=== PATIENT | female | born 1945 | race African-American/Black ===

== ENCOUNTER 2017-08-20 09:07 | Emergency (ER) | payer MEDICARE ==
--- NOTE | 2017-08-20 10:29 | ER Document Report ---
HPI - HPI Patient complains to provider of: ulcer check Onset: Other Onset/Duration: Persistent Quality of pain: No pain Context: Patient presents to the emergency department via EMS with her daughter for complaints of sacral decubitus recheck. Daughter gives history that earlier this year the patient was in [place] in the hospital for possible stroke was discharged and placed in a rehab center. She reports patient has been in the rehab center for the past 2 weeks and she has been falling a lot so daughter checked her out one day early. Daughter brought her home to her house to take care of her. She reports home health has been coming out to take care of her mother they have been treating the decubitus ulcer on her sacral area. Daughter reports the sacral area looks better than it did. She reports she worries about mom not eating enough. She also is worried because she needs an ambulance to transport her and mom does have does not have Medicaid. She reports mom has an appointment with her primary care provider this Tuesday. Daughter reports that she is basically here to have us evaluate the decubitus to make sure it does not need further treatment. Daughter again stated that it looks better than it did. Associated Symptoms: None Exacerbated by: Denies Relieved by: Denies Similar symptoms previously: Yes Recently seen / treated by doctor: Yes Past Medical History - General Information source: Relative - daughter - Social History Smoking Status: Unknown if Ever Smoked Cigarette use (# per day): No Frequency of alcohol use: None Drug Abuse: None Lives with: Family Family History: Reviewed & Not Pertinent Patient has suicidal ideation: No Patient has homicidal ideation: No - Past Medical History Cardiac Medical History: Reports: Hx Coronary Artery Disease, Hx Hypercholesterolemia, Hx Hypertension Neurological Medical History: Reports: Hx Cerebrovascular Accident Psychiatric Medical History: Reports: Hx Depression Surgical Hx: Negative Past Surgical History: Reports: Hx Cardiac Surgery Vertical Provider Document - CONSTITUTIONAL Agree With Documented VS: Yes General Appearance: WD/WN, No Apparent Distress - INFECTION CONTROL TRAVEL OUTSIDE OF THE [place] IN LAST 30 DAYS: No - HEENT HEENT: Atraumatic, Normocephalic - NECK Neck: Supple - RESPIRATORY Respiratory: Breath Sounds Normal, No Respiratory Distress O2 Sat by Pulse Oximetry: 95 - CARDIOVASCULAR Cardiovascular: Regular Rate, Regular Rhythm - GI/ABDOMEN Gastrointestinal: Abdomen Soft, Abdomen Non-Tender - MUSCULOSKELETAL/EXTREMETIES Musculoskeletal/Extremeties: MAEW, FROM - NEURO Level of Consciousness: Awake, Alert, Non-Verbal - DERM Integumentary: Warm, Dry Adult Front & Back Diagram: 1 - stage 2 decubitus ulcer, no warmth, no swelling, no discharge Course - Re-evaluation Re-evalutation: 08/20/17 10:37 pt daughter is here to have the decubitus ulcer rechecked. Pt has home health care, an [employer] has checked the ulcer this past week, they said it was looking better but daughter is worried. Daughter denies f/n/v/d. She reports she is worried about mom and that is why she is here. [facility] protective services social worker contacted to help daughter with obtaining medicaid and any other community services to help her care for mom. 08/20/17 [place] protective services social worker in with patient. Daughter verbalized understanding to all information [facility] transport here for patient - Vital Signs Vital signs: Temp Pulse Resp BP Pulse Ox 98.1 F 53 L 18 166/59 H 95 08/20/17 09:13 08/20/17 09:13 08/20/17 09:13 08/20/17 09:13 08/20/17 09:13 Discharge - Discharge Clinical Impression: Decubitus skin ulcer Qualifiers: Pressure ulcer location: sacral region Pressure ulcer stage: stage 2 Qualified Code(s): L89.152 - Pressure ulcer of sacral region, stage 2 Condition: Stable Disposition: HOME, SELF-CARE Instructions: Decubitus Ulcer ([facility]) Additional Instructions: *You have been treated for check of decubitus ulcer *Monitor the site for signs of infection such as increasing pain, redness, swelling, warmth *Keep the area clean, change positions ofter *Follow up with her primary care provider Tuesday as scheduled *Return to ED for signs of increasing infection, worsening condition, changes, needs, concerns Forms: Elevated Blood Pressure
[2017-08-20 11:24] VITALS: BP 157/62
== END 2017-08-20 11:32 | disposition home or self-care (01) ==
LOC: EDBD 09:07 → ER 09:07
DX: L89.152 Pressure ulcer of sacral region, stage 2 (principal); I25.10 Atherosclerotic heart disease of native coronary artery without angina pectoris; I10 Essential (primary) hypertension
CPT/HCPCS: 99284

== ENCOUNTER 2017-09-02 17:00 | Emergency (ER) | payer MEDICARE ==
--- NOTE | 2017-09-02 17:24 | ER Document Report ---
ED General - General Stated Complaint: UNRESPONSIVE Time Seen by Provider: 09/02/17 17:22 Mode of Arrival: Medic Information source: Relative, Emergency Med Personnel Cannot obtain history due to: Intubated, Unstable vital signs Notes: 71-year-old female history of CVA presents unresponsive by EMS. It was noted that the call was made out to EMS for unresponsiveness when they arrived they noted that the patient was not breating in the ems, pt had lost pulses and cpr was stated pt noted ot have aspirated had large amount of food in the esophagus TRAVEL OUTSIDE OF THE [place] IN LAST 30 DAYS: No - HPI Onset: Just prior to arrival Onset/Duration: Sudden Quality of pain: No pain Severity: Severe Pain Level: Denies Associated symptoms: Other Exacerbated by: Denies Relieved by: Denies Similar symptoms previously: No Recently seen / treated by doctor: No - Related Data Allergies/Adverse Reactions: No Known Allergies Allergy (Unverified 08/20/17 09:21) Past Medical History - Social History Smoking Status: Never Smoker Cigarette use (# per day): No Chew tobacco use (# tins/day): No Smoking Education Provided: No Family History: Reviewed & Not Pertinent - Past Medical History Cardiac Medical History: Reports: Hx Coronary Artery Disease, Hx Hypercholesterolemia, Hx Hypertension Neurological Medical History: Reports: Hx Cerebrovascular Accident Psychiatric Medical History: Reports: Hx Depression Past Surgical History: Reports: Hx Cardiac Surgery Review of Systems - Review of Systems Notes: PHYSICAL EXAMINATION: GENERAL: Ill-appearing female unresponsive HEAD: Atraumatic, normocephalic. EYES: Pupils 3 mm nonreactive bilateral ENT: Nares patent, oropharynx clear without exudates. Moist mucous membranes. Large amount of food in mouth NECK: Normal range of motion, supple without lymphadenopathy LUNGS: Ricki airway in place HEART: Chest compressions being performed actively ABDOMEN: Soft, nontender, nondistended abdomen. No guarding, no rebound. No masses appreciated. Female : deferred Musculoskeletal: No spontaneous movement NEUROLOGICAL: GCS 3 and intubated SKIN: Warm, Dry, normal turgor, no rashes or lesions noted. Course - Re-evaluation Re-evalutation: 09/02/17 22:25 Patient was brought in by EMS emergency traffic with chest compressions being performed, multiple rounds of epinephrine were given, patient went from asystole to PEA, patient was noted to have large amount of aspiration, Ricki airway was removed and she was reintubated with a 7 oh ET tube O2 sats improved to 80%, but no pulses were able to be returned. Chest compressions were performed until patient's and daughter arrived Time of was called after multiple failed rounds and 30 minutes of compressions Procedures - Intubation Orotracheal Time of Intubation: 17:23 Airway evaluation: Copious secretions, Poss. upper airway obst. Intubation method: Orotracheal Blade type: Nate Blade size: 4 ETT size: 7.0 ETT secured at: Lips ETT secured at (cm): 22 Breath Sounds after Intubation: Equal End tidal CO2 confirmed: No Critical Care Note - Critical Care Note Total time excluding time spent on procedures (mins): 35 Comments: 35 minutes of critical care time spent in direct contact evaluating and reevaluating the patient, treating symptoms, reviewing labs and studies and speaking with family and consultants excluding any procedures Discharge - Discharge Clinical Impression: Cardiac arrest Aspiration into airway Qualifiers: Encounter type: initial encounter Qualified Code(s): T17.908A - Unspecified foreign body in respiratory tract, part unspecified causing other injury, initial encounter Condition: Critical Disposition:
[2017-09-02] MEDS ORDERED: EPINEPHRINE INJ 1 MG/10 ML DISP.SYRIN ONE (20:06)
== END 2017-09-02 17:22 | disposition expired ==
LOC: ER 17:00
PROC: 0BH17EZ Insertion of Endotracheal Airway into Trachea, Via Natural or Artificial Opening (ICD-10-PCS; principal; 2017-09-02)
DX: I46.9 Cardiac arrest, cause unspecified (principal); T17.908A Unspecified foreign body in respiratory tract, part unspecified causing other injury, initial encounter; R41.82 Altered mental status, unspecified
CPT/HCPCS: 99291; 31500; J0171